=== PATIENT | female | born 1995 | race Caucasian/White ===

== ENCOUNTER 2021-04-09 11:09 | Emergency (ER) | payer OTHER ==
[2021-04-09 12:01] LABS: Urine Blood Negative (Negative); Urine Glucose Negative (Negative); Urine Protein Negative (Negative); Urine Specific Gravity >=1.030 (1.005-1.030); Urine pH 5.5 (5.0-7.0)
[2021-04-09 12:14] LABS: Absolute Lymphocytes (CBC) 2.4 K/uL (0.7-4.9); Basophils % 0.3 % (0-1.3); Hematocrit 42.8 % (36.0-45.0); MPV 7.3 fL (7.6-11.3); RBC Red Blood Cell Count 4.91 M/uL (3.86-4.86)
[2021-04-09 12:20] LABS: Barbiturates NEGATIVE (NEGATIVE); Benzodiazepines NEGATIVE (NEGATIVE); Cocaine NEGATIVE (NEGATIVE); METHAMPHETAM NEGATIVE (NEGATIVE); Methadone NEGATIVE (NEGATIVE); Opiates NEGATIVE (NEGATIVE); Phencyclidine NEGATIVE (NEGATIVE); THC Cannibis NEGATIVE (NEGATIVE)
[2021-04-09 12:21] LABS: Protime INR 1.07
[2021-04-09 12:34] LABS: ALT/SGPT 28 U/L (12-78); AST/SGOT 14 U/L (15-37); Albumin 4.1 g/dL (3.4-5.0); Alkaline Phosphatase 78 U/L (45-117); BUN Blood Urea Nitrogen 9 mg/dL (7-18); Bicarbonate 23 mmol/L (21-32); Bilirubin Direct 0.1 mg/dL (0-0.2); Bilirubin Total 0.4 mg/dL (0.2-1.0); Glucose Level 91 mg/dL (74-106); Potassium 3.8 mmol/L (3.5-5.1); Protein, Total 8.3 g/dL (6.4-8.2); Sodium Level 141 mmol/L (136-145)
--- NOTE | 2021-04-09 14:03 | EDPHYS ---
Physician Documentation [facility] Name: Bhavna Foster Age: 25 yrs Sex: Female : 1995 Arrival Date: 04/09/2021 Time: 11:11 Bed 13 Private MD: ED Physician Maggie Lomeli HPI: 04/09 11:42 This 25 yrs old Female presents to ER via Ambulatory with complaints of jmm mental health eval. 11:42 The patient presents to the emergency department with anxiety, depression, suicide jmm ideation, but the patient has no formulated plan. Onset: The symptoms/episode began/occurred gradually, 2 week(s) ago. Patient recently prescribed temazapam, escatalopram, and buproprion. Patient admitted to not taking the medication. patient states she wants to be hospitalized due to suicidal thoughts over the past 2 weeks. . Historical: - Allergies: 11:20 No Known Allergies; ll1 - PMHx: 11:20 None; ll1 - PSHx: 11:20 None; ll1 - Immunization history:: Client reports having NOT received the Covid vaccine. - Social history:: Smoking status: Patient denies any tobacco usage or history of. ROS: 11:42 Constitutional: Negative for fever, chills, and weight loss, Cardiovascular: Negative jmm for chest pain, palpitations, and edema, Respiratory: Negative for shortness of breath, cough, wheezing, and pleuritic chest pain, Abdomen/GI: Negative for abdominal pain, nausea, vomiting, diarrhea, and constipation. 11:42 Psych: Positive for suicidal ideation. 11:42 All other systems are negative. Exam: 11:42 Constitutional: This is a well developed, well nourished patient who is awake, alert, jmm and in no acute distress. Head/Face: atraumatic. Eyes: EOMI, no conjunctival erythema appreciated ENT: Moist Mucus Membranes Neck: Trachea midline, Supple Chest/axilla: Normal chest wall appearance and motion. Cardiovascular: Regular rate and rhythm. No edema appreciated Respiratory: Normal respirations, no respiratory distress appreciated Abdomen/GI: Non distended, soft Back: Normal ROM Skin: General appearance color normal MS/ Extremity: Moves all extremities, no obvious deformities appreciated, no edema noted to the lower extremities Neuro: Awake and alert, normal gait 11:42 Psych: Behavior/mood is pleasant, cooperative, anxious. Vital Signs: 11:21 BP 125 / 86; Pulse 83; Resp 17; Temp 97.9; Pulse Ox 100% ; Weight 60.33 kg; Height 5 ll1 ft. 3 in. (160.02 cm); Pain 0/10; 11:21 Body Mass Index 23.56 (60.33 kg, 160.02 cm) ll1 MDM: 11:42 Patient medically screened. [facility] 14:01 Data reviewed: vital signs, nurses notes. Counseling: I had a detailed discussion with [facility] the patient and/or guardian regarding: the historical points, exam findings, and any diagnostic results supporting the discharge/admit diagnosis, the need to transfer to another facility. ED course: I discussed the patient with Dr. Ortiz whom accepted the patient for transfer. . 04/09 11:43 Order name: Acetaminophen [facility] 04/09 11:43 Order name: Basic Metabolic Panel [facility] 04/09 11:43 Order name: CBC with Diff; Complete Time: 12:31 [facility] 04/09 11:43 Order name: ETOH Level; Complete Time: 12:45 [facility] 04/09 11:43 Order name: Hepatic Function; Complete Time: 12:45 [facility] 04/09 11:43 Order name: PT-INR; Complete Time: 12:31 [facility] 04/09 11:43 Order name: Ptt, Activated; Complete Time: 12:31 [facility] 04/09 11:43 Order name: Salicylate; Complete Time: 12:45 [facility] 04/09 11:43 Order name: Urine Drug Screen; Complete Time: 12:31 [facility] 04/09 11:43 Order name: Acetaminophen Level; Complete Time: 12:45 [facility] 04/09 11:43 Order name: Basic Metabolic Panel; Complete Time: 12:45 [facility] 04/09 12:01 Order name: Urine Dipstick-Ancillary; Complete Time: 12:31 [facility] 04/09 12:13 Order name: Urine --Ancillary (enter results) 04/09 12:14 Order name: Urine --Ancillary; Complete Time: 12:45 [facility] 04/09 11:43 Order name: EKG; Complete Time: 11:44 [facility] 04/09 11:43 Order name: EKG - Nurse/Tech; Complete Time: 12:05 [facility] 04/09 11:43 Order name: IV Saline Lock; Complete Time: 12:12 [facility] 04/09 11:43 Order name: Labs collected and sent; Complete Time: 12:12 [facility] 04/09 11:43 Order name: Suicide Screening ([place]); Complete Time: 12:36 [facility] 04/09 11:43 Order name: Urine Dipstick-Ancillary (obtain specimen); Complete Time: 12:04 [facility] 04/09 11:43 Order name: Urine Test (obtain specimen); Complete Time: 12:36 [facility] 04/09 12:30 Order name: COVID-19 SARS RT PCR (Document "Date of Onset" if Symptomatic); Complete eb Time: 14:06 Administered Medications: No medications were administered Disposition Summary: 04/09/21 14:03 Transfer Ordered Transfer Location: [facility] Reason: Higher level of care [facility] Condition: Stable [facility] Problem: new [facility] Symptoms: are unchanged [facility] Accepting Physician: Dr. Ortiz(04/09/21 15:17) eb Diagnosis - Suicidal ideations [facility] Forms: - Medication Reconciliation Form [facility] - SBAR form [facility] Addendum: 04/12/2021 22:56 Co-signature as Attending Physician, Maggie rodriguez a2 Signatures: Dispatcher [employer] Alessandro Gastelum PA PA jmm Alzahri, Mohammad, MD MD ma2 Linnea Bird Lynsay, RN RN ll1 Corrections: (The following items were deleted from the chart) 04/09 15:17 14:03 Dr. Ortiz [facility] eb
--- NOTE | 2021-04-09 14:03 | ER ---
Nurse's Notes [facility] Name: Bhavna Foster Age: 25 yrs Sex: Female : 1995 Arrival Date: 04/09/2021 Time: 11:11 Bed 13 Private MD: Diagnosis: Suicidal ideations Presentation: 04/09 11:21 Chief complaint: Patient states: States she is having depression, anxiety, generalized ll1 suicidal thoughts for past two weeks. No specific plan. Has seen a psychiatrist twice. Was started on temazepam, but stopped it after a few days cause is no longer helped her. Doctor prescribed her bupropion and escitalopram Monday, which she got filled but is not taking it yet. Coronavirus screen: Vaccine status: Patient reports being unvaccinated. Client denies travel out of the [place] in the last 14 days. At this time, the client does not indicate any symptoms associated with coronavirus-19. Ebola Screen: Patient denies travel to an Ebola-affected area in the 21 days before illness onset. Initial Sepsis Screen: Does the patient meet any 2 criteria? No. Patient's initial sepsis screen is negative. Does the patient have a suspected source of infection? No. Patient's initial sepsis screen is negative. Risk Assessment: Do you want to hurt yourself or someone else? Patient reports no desire to harm self or others. Onset of symptoms was March 25, 2021. 11:21 Method Of Arrival: Ambulatory ll1 11:21 Acuity: BILLIE 3 ll1 Historical: - Allergies: 11:20 No Known Allergies; ll1 - PMHx: 11:20 None; ll1 - PSHx: 11:20 None; ll1 - Immunization history:: Client reports having NOT received the Covid vaccine. - Social history:: Smoking status: Patient denies any tobacco usage or history of. Screenin:41 Abuse screen: Denies threats or abuse. Denies injuries from another. Nutritional jt3 screening: No deficits noted. Tuberculosis screening: No symptoms or risk factors identified. Fall Risk None identified. Assessment: 11:38 General: Appears in no apparent distress. Behavior is calm, cooperative. Pain: Denies jt3 pain. 11:41 General: Pt. reports being depressed for a couple weeks. Pt. endorses suicidal thoughts jt3 but does not want to act on them. Pt. denies having a plan. Pt. states she just cannot even get out of bed. No signs of trauma. . 13:18 Reassessment: Report given to BREE Barajas at [facility]. . [facility] Vital Signs: 11:21 BP 125 / 86; Pulse 83; Resp 17; Temp 97.9; Pulse Ox 100% ; Weight 60.33 kg; Height 5 1 ft. 3 in. (160.02 cm); Pain 0/10; 11:21 Body Mass Index 23.56 (60.33 kg, 160.02 cm) [facility] ED Course: 11:11 Patient arrived in ED. as 11:13 Arie Peters, BREE is Primary Nurse. jt3 11:20 Arm band placed on Patient placed in an exam room, on a stretcher. 1 11:24 Triage completed. 1 11:27 Alessandro Schofield PA is PHCP. [facility] 11:27 Maggie Lomeli MD is Attending Physician. [facility] 11:41 Patient has correct armband on for positive identification. Bed in low position. Call jt3 light in reach. Side rails up X2. 11:41 No provider procedures requiring assistance completed. jt3 12:05 Urine Drug Screen Sent. 5 12:05 Initial lab(s) drawn, by ED staff, sent to lab. Urine collected: clean catch specimen, 5 clear, EKG done, by ED staff, reviewed by Alessandro CARRASQUILLO. 12:06 Placed in gown. Warm blanket given. Pulse ox on. NIBP on. 5 12:06 UDS. 5 12:09 Inserted saline lock: 20 gauge in left antecubital area, using aseptic technique. gd 12:35 COVID-19 SARS RT PCR (Document "Date of Onset" if Symptomatic) Sent. iw 12:35 Urine --Ancillary Sent. iw 12:35 Urine --Ancillary (enter results) Sent. iw 12:36 Basic Metabolic Panel Sent. iw 12:36 Acetaminophen Level Sent. iw 12:36 Acetaminophen Sent. iw 12:36 Basic Metabolic Panel Sent. iw 12:36 ETOH Level Sent. iw 12:36 Hepatic Function Sent. iw 12:36 Salicylate Sent. iw 12:37 COVID swab sent to lab. 5 13:12 connected Jenn from [facility] with Arie for patient transfer consultation.eb 13:18 administrative approval given by Martha Ramirez/ patient has been accepted to [facility]/ report already given and she will page the test conductor physician who will call back to speak with Alessandro Carrasquillo. 13:[address] Chang the psychiatrist test conductor for [facility] with Alessandro Carrasquillo for eb patient transfer consultation. 14:49 IV discontinued. jt3 Administered Medications: No medications were administered Outcome: 14:03 ER care complete, transfer ordered by MD. ko 14:48 Transferred by ground EMS Note: [facility] jt3 14:48 Condition: good 14:48 Discharge instructions given to EMS. 15:17 Patient left the ED. eb Signatures: Alessandro Schofield PA PA jmm Martinez, Amelia as Williams, Irene, RN Haven Lloyd [facility] Linnea Bird Lynsay, RN RN ll1 Femi [place], RN RN jt3
[2021-04-09 15:49] VITALS: BP 125/86; TEMP 97.9; O2SAT 100
--- NOTE | 2021-04-10 14:23 | EKG ---
Test Date: 2021-04-09 Test Time: 12:22:35 Pelt Salter: MERNA MEASUREMENT RESULTS: Intervals: Rate: 82 MD: 114 QRSD: 82 QT: 360 QTc: 420 Carpenter: P: 77 MD: 114 QRS: 72 T: 39 INTERPRETIVE STATEMENTS: Sinus rhythm with marked sinus arrhythmia Otherwise normal ECG No previous ECG available for comparison Electronically Signed On 04-10-21 14:21:40 CDT by Clyde Rodriguez
== END 2021-04-09 15:17 ==
LOC: ER 11:09
DX: R45.851 Suicidal ideations (principal); Z20.822 Contact with and (suspected) exposure to COVID-19
CPT/HCPCS: 93005; 85025; 80048; 36415; 80320; 80329 ×2; 81025; 85610; 80076; 85730; 81003; 80307; 99285; U0003